=== PATIENT | female | born 1965 | race Caucasian/White ===

== ENCOUNTER → 2017-02-12 | Outpatient (CLI) | payer BC | LOC: FIMAGING 08:03 | DX: Z12.31 Encounter for screening mammogram for malignant neoplasm of breast (principal); Z80.3 Family history of malignant neoplasm of breast | CPT/HCPCS: G0202 ==

== ENCOUNTER → 2018-01-10 | Outpatient (CLI) | payer BC | LOC: FIMAGING 11:27 | PROVIDERS: ATTEND Family Medicine | DX: Z13.820 Encounter for screening for osteoporosis (principal); M85.89 Other specified disorders of bone density and structure, multiple sites ==

== ENCOUNTER → 2018-02-14 | Outpatient (CLI) | payer BC | LOC: FIMAGING 07:38 | PROVIDERS: ATTEND Family Medicine | DX: Z12.31 Encounter for screening mammogram for malignant neoplasm of breast (principal) ==

== ENCOUNTER → 2019-02-17 | Outpatient (CLI) | payer BC | LOC: FIMAGING 07:25 | PROVIDERS: ATTEND Physician Assistant Medical | DX: Z12.31 Encounter for screening mammogram for malignant neoplasm of breast (principal); Z80.3 Family history of malignant neoplasm of breast ==